=== PATIENT | female | born 1970 | race Two or more races ===

== ENCOUNTER 2021-05-11 13:46 | Outpatient (REF) | payer OTHER, SELFPAY ==
[2021-05-11 21:38] LABS: Influenza A PCR NEGATIVE (Negative); Influenza B PCR NEGATIVE (Negative); Resp Syncy Virus RNA Qual PCR NEGATIVE (Negative); SARS COV2 PCR INHOUSE NEGATIVE (Negative)
== END 2021-05-11 13:47 | disposition home or self-care (01) ==
LOC: HO.LAB 13:46
PROVIDERS: Visit Provider Hospitalist
DX: Z20.822 Contact with and (suspected) exposure to COVID-19 (principal); R09.89 Other specified symptoms and signs involving the circulatory and respiratory systems
CPT/HCPCS: 0241U

== ENCOUNTER 2023-11-15 10:24 | Outpatient (AMB) | payer OTHER, SELFPAY ==
--- NOTE | 2023-11-15 10:28 | MHC.PC.OV ---
Vital Signs 11/15/23 10:34 Height 5 ft 2 in Weight 206 lb BMI 37.7 BP 122/60 Blood Pressure Location Lt brachial Position Sitting Respiration 13 Pulse 86 Pulse Source Pulse Oximeter Pulse Oximetry (%) 98 Oxygen Delivery Method Room Air Intake Visit Reasons: OC/SV/Establish Care Intake Note: Patient reports feeling tired for the last 2 months, with bloating. Baker Bench Required: No Accompanied by: Self / Same As Patient Allergies mold Allergy (Unknown, Verified 11/15/23 10:39) unknown Medication List - Last Reconciled 11/17/23 by Norma Raphael MD amlodipine 5 mg PO DAILY aspirin (Adult Low Dose Aspirin) 81 mg PO DAILY Bacillus coagulans-inulin 1 billion-250 cell-mg (Probiotic Formula (inulin)) caps PO diclofenac sodium 1% (Aleve (diclofenac)) 2 grams topical QID ergocalciferol (vitamin D2) 50 mcg PO DAILY ferrous fumarate 325 mg PO DAILY fluticasone propionate 50 mcg/actuation (Flonase Allergy Relief) 1 spray intranasal DAILY hydrochlorothiazide 12.5 mg PO DAILY magnesium aspartate HCl 1,230 mg PO BID mecobalamin (vitamin B12) 1,000 mcg PO DAILY omeprazole 20 mg PO DAILY Tobacco use date assessed: 11/15/23 Dental Screening Dental Screen Date: 11/15/23 Did you have a dental visit in the last 12 months?: Yes Did you have a dental problem in the last 6 months where you did not have access to dental care?: No Was dental information given to patient?: Patient has dentist HPI HPI Comments History of Present Illness Details The patient is a 53 year old female with a past medical history of hypertension, anemia, low back pain, arthritis, bells palsy presenting for follow up CV-Hypertension. On amlodipine and hctz. No chest pain, dizziness, vision changes MSK: Arthritis. Bilateral hands. Uses diclofenac gel Anemia: Has been on B12, iron supplements in the past. History of platelets donation. Has HLA antigens In November 2021 had [place] Palsy. She has had this in the past. Started with facial numbness and asymmetry. She had MRI thereafter which showed small vessel changes and sequelae of bells palsy Mammogram 06/2023 Pap 12/19/2021 Colonoscopy UTD ROS CONSTITUTIONAL: Denies weight loss, fever and chills. HEENT: Denies changes in vision and hearing. RESPIRATORY: Denies SOB and cough. CV: Denies palpitations and CP GI: Denies abdominal pain, nausea, vomiting and diarrhea. : Denies dysuria and urinary frequency. MSK: Denies new myalgia and joint pain. SKIN: Denies rash and pruritus. NEUROLOGICAL: Denies headache PSYCHIATRIC: Denies recent changes in mood. PHYSICAL EXAM: GENERAL: Alert and oriented x 3. NAD EYES: EOMI. Anicteric. HENT: Moist mucous membranes. No scleral icterus. No cervical lymphadenopathy. LUNGS: Clear to auscultation bilaterally. CARDIOVASCULAR: Regular rate and rhythm. No murmur. No JVD. ABDOMEN: Soft, non-tender +bs EXTREMITIES: No edema. Non-tender. SKIN: No rashes or lesions. Warm. NEUROLOGIC: No focal neurological deficits. CN II-XII grossly intact PSYCHIATRIC: Cooperative. Appropriate mood and affect [facility] Medical History (Updated 11/17/23 @ 09:32 by Norma Raphael MD) Severe obesity (BMI 35.0-39.9) with comorbidity Spinal stenosis of lumbar region Pre-diabetes Lumbar spondylosis Left knee pain Hypertension Osei's palsy Anemia Allergic rhinitis Surgical History (Updated 11/15/23 @ 12:45 by Jackelin Kirk CMA) History of lumpectomy History of colonoscopy Social History (Updated 11/15/23 @ 10:41 by Jackelin Kirk CMA) Household Members: None Housing: House Alcohol intake: current Alcohol intake frequency: a few times a month Patient Tobacco Use Status: Never used Tobacco e-Cigarette/Vaping Use: Never Used Substance Use Type: Marijuana service: No Current occupational status: employed Current occupation: [employer] Current occupational exposures/hazards: No Cognitive needs: No Hearing needs: No Vision needs: No Questionnaire PHQ-9 Over the last 2 weeks, how often have you been bothered by any of the following problems? 1. Little interest or pleasure in doing things: not at all 2. Feeling down, depressed, or hopeless: not at all 3. Trouble falling or staying asleep, or sleeping too much: not at all 4. Feeling tired or having little energy: not at all 5. Poor appetite or overeating: not at all 6. Feeling bad about yourself - or that you are a failure or have let yourself or your family down: not at all 7. Trouble concentrating on things, such as reading the newspaper or watching television: not at all 8. Moving or speaking so slowly that other people could have noticed. Or the opposite - being so fidgety or restless that you have been moving around a lot more than usual: not at all 9. Thoughts that you would be better off or of hurting yourself in some way: not at all Total score: 0 Depression Screening Interpretation: Negative Depression Screening Done: Yes 94581 - PHQ-9 Billing: Yes Source: Developed by Drs. Thai Davidson, Sarah Trujillo, Vikram Edmond and colleagues, with an educational mariano from [employer]. Thrive Questionnaire Date Thrive assessed: 11/15/23 I am a: Patient What is your living situation today?: I have a steady place to live Within the past 12 months, did the food you bought not last and you didn't have the money to get more?: Never true Within the past 12 months, did you worry whether your food would run out before you got money to buy more?: Never true Do you have trouble paying for medicines?: No Do you have trouble getting transportation to medical appointments?: No Do you have trouble paying your heating and electricity bill?: No Do you have trouble taking care of your child, family member or friend?: No Do you have trouble with day-to-day activities such as bathing, preparing meals, shopping, managing finances, etc.?: No Are you currently unemployed and looking for a job?: No Are you interested in more education?: No Please select the resources that you would like help with: None Currently or been in a relationship where the following occur: No concerns reported THRIVE Score: 0 AUDIT C Alcohol Use Questionnaire (AUDIT-C) 1. How often do you have a drink containing alcohol?: Monthly or less 2. How many drinks containing alcohol do you have on a typical day when you are drinking?: 1 or 2 3. How often do you have six or more drinks on one occasion?: Never Total Score: 1 LIZ-7 AMB Questionnaire LIZ-7 Date LIZ - 7 assessed: 11/15/23 Feeling nervous, anxious, or on edge: 0 = Not at all Not being able to stop or control worryin = Not at all Worrying too much about different things: 0 = Not at all Trouble relaxin = Not at all Being so restless that it is hard to sit still: 0 = Not at all Becoming easily annoyed or irritable: 0 = Not at all Feeling afraid as if something awful might happen: 0 = Not at all Total LIZ-7 score (0-4 normal; 5-9 mild; 10-14 moderate; 15-21 severe): 0 Source: Developed by Drs. Thai Davidson, Sarah Trujillo, Vikram Edmond and colleagues, with an educational mariano from [employer]. LIZ-7 Assessment Billing LIZ-7 Assessment Tool: LIZ-7 Assessment 88625 Physical exam (Primary Care) Vital Signs: Last Vital Signs Pulse 86 11/15/23 10:34 Resp 13 11/15/23 10:34 BP 122/60 11/15/23 10:34 Pulse Ox 98 11/15/23 10:34 Oxygen Delivery Method Room Air 11/15/23 10:34 BMI result Body Mass Index 37.7 Tobacco/Smoking Status: Tobacco use Status Tobacco use date assessed 11/15/23 11/15/23 10:41 Patient Tobacco Use Status Never used Tobacco 11/15/23 10:41 e-Cigarette/Vaping Use Never Used 11/15/23 10:41 PHQ-9: PHQ-9 Score PHQ-9: Total score 0 11/15/23 10:53 Depression Screening Interpretation: Negative Thrive Assessment: Date of Thrive Assessment Date Thrive assessed 11/15/23 11/15/23 10:51 Currently or been in a relationship where the following occur: No concerns reported Assessment and Plan Assessment & Plan (1) Hypertension: Code(s): I10 - Essential (primary) hypertension Qualifiers: Hypertension type: primary hypertension Qualified Code(s): I10 - Essential (primary) hypertension Plan: controlled on current medication (2) Pre-diabetes: Code(s): R73.03 - Prediabetes (3) Fatigue: Code(s): R53.83 - Other fatigue Qualifiers: Fatigue type: unspecified Qualified Code(s): R53.83 - Other fatigue (4) Dyspepsia: Code(s): R10.13 - Epigastric pain Plan: dyspepsia. Trial PPI for one month. consider GI referral if no improvement Orders: Orders IRON PROFILE 11/15/23 D64.9 - Anemia, unspecified, I10 - Essential (primary) hypertension, R10.13 - Epigastric pain, R53.83 - Other fatigue, R73.03 - Prediabetes Vitamin B12 11/15/23 D64.9 - Anemia, unspecified, I10 - Essential (primary) hypertension, R10.13 - Epigastric pain, R53.83 - Other fatigue, R73.03 - Prediabetes Comprehensive Met. Panel 11/15/23 D64.9 - Anemia, unspecified, I10 - Essential (primary) hypertension, R10.13 - Epigastric pain, R53.83 - Other fatigue, R73.03 - Prediabetes Complete Blood Count Auto Diff 11/15/23 D64.9 - Anemia, unspecified, I10 - Essential (primary) hypertension, R10.13 - Epigastric pain, R53.83 - Other fatigue, R73.03 - Prediabetes Lyme IgG/IgM w/reflex to WB 11/15/23 D64.9 - Anemia, unspecified, I10 - Essential (primary) hypertension, R10.13 - Epigastric pain, R53.83 - Other fatigue, R73.03 - Prediabetes Monotest 11/15/23 D64.9 - Anemia, unspecified, I10 - Essential (primary) hypertension, R10.13 - Epigastric pain, R53.83 - Other fatigue, R73.03 - Prediabetes Hemoglobin A1c 11/15/23 D64.9 - Anemia, unspecified, I10 - Essential (primary) hypertension, R10.13 - Epigastric pain, R53.83 - Other fatigue, R73.03 - Prediabetes TSH reflex Free T4 11/15/23 D64.9 - Anemia, unspecified, I10 - Essential (primary) hypertension, R10.13 - Epigastric pain, R53.83 - Other fatigue, R73.03 - Prediabetes Medications: New diclofenac sodium 1% (Aleve (diclofenac)) apply to single elbow, wrist or hand; for hand includes palm/fingers/back of hand 2 grams topical QID 100 grams 0RF omeprazole 20 mg PO DAILY 30 caps 0RF aspirin (Adult Low Dose Aspirin) 81 mg PO DAILY 30 tabs 0RF ferrous fumarate 325 mg PO DAILY 30 tabs 0RF Coding Level of Care Code Est Pt Level 5 (06035) Complex EM visit Add On G2211 Diagnoses Primary hypertension I10 Hypertension type: primary hypertension Pre-diabetes R73.03 Fatigue, unspecified type R53.83 Fatigue type: unspecified Dyspepsia R10.13 Additional Codes LIZ-7 Assessment Billing - LIZ-7 Assessment Tool: LIZ-7 Assessment 95288 ([id number])
[2023-11-15 10:34] VITALS: BP 122/60; PULSE 86; RESP 13; O2SAT 98; BMI 37.7
== END 2023-11-15 13:11 | disposition home or self-care (01) ==
PROVIDERS: PCP Internal Medicine; Visit Provider Internal Medicine
DX: I10 Essential (primary) hypertension (principal); R73.03 Prediabetes; R53.83 Other fatigue; R10.13 Epigastric pain
CPT/HCPCS: 99214

== ENCOUNTER 2023-11-15 11:20 | Outpatient (REF) | payer OTHER, SELFPAY ==
[2023-11-15 14:04] LABS: MANUAL DIFF FLAG NO
[2023-11-15 14:22] LABS: Basophils Absolute Auto 0.1 X10*3/uL (0.0-0.2); Basophils Percent Auto 1.1 % (0-2); Eosinophils Absolute Auto 0.2 X10*3/uL (0.0-0.4); Eosinophils Percent Auto 2.1 % (0-4); Hematocrit 43.5 % (37.0-47.0); Hemoglobin 14.1 g/dl (12.0-16.0); Imm Gran Abs Auto 0.02 X10*3/uL (0.00-0.03); Imm Gran Pct Auto 0.2 % (0.0-0.4); Lymphocytes Absolute Auto 2.8 X10*3/uL (1.2-4.9); Lymphocytes Percent Auto 34.2 % (20-40); Mean Corpuscular HGB Conc 32.4 g/dl (31.0-35.0); Mean Corpuscular Hemoglobin 27.3 pg (27.0-33.0); Mean Corpuscular Volume 84.1 fL (80.0-98.0); Mean Platelet Volume 9.6 fL (9.4-12.3); Monocytes Absolute Auto 0.9 X10*3/uL (0.1-1.2); Monocytes Percent Auto 10.4 % (2-11); Neutrophils Absolute Auto 4.3 x10*3/uL (2.0-8.3); Platelet Count 377 X10*3/uL (160-400); Red Blood Count 5.17 X10*6/uL (4.20-5.50); Red Cell Distribution Width 14.6 % (11.0-16.0); White Blood Count 8.2 X10*3/uL (4.8-10.8)
[2023-11-15 14:26] LABS: Estimated Average Glucose 111 mg/dL; Hemoglobin A1c % 5.5 % (<6.0)
[2023-11-15 14:35] LABS: Alanine Aminotransferase 15 U/L (0-31); Albumin Level 4.3 g/dL (3.5-5.0); Alkaline Phosphatase 98 U/L (39-117); Anion Gap 12 (12-20); Aspartate Amino Transferase 20 U/L (5-31); Bilirubin Total 0.3 mg/dL (0.0-1.0); Blood Urea Nitrogen 22 mg/dL (9-16); Calcium 9.8 mg/dL (8.4-10.2); Carbon Dioxide 29 mmol/L (22-29); Chloride 102 mmol/L (96-108); Estimated Glomerular Filt Rate > 60; Glucose Random 82 mg/dL (60-115); Iron 114 mcg/dL (30-160); Percent Iron Saturation 38 % (15-50); Potassium 4.1 mmol/L (3.3-5.1); Sodium 139 mmol/L (135-145); Total Iron Binding Capacity 302 mcg/dL (228-428); Total Protein 7.8 g/dL (6.5-8.0); Unsaturated Iron Binding 188 ug/dL
[2023-11-15 14:49] LABS: TSH reflex Free T4 1.45 uIU/mL (0.32-4.0)
[2023-11-15 14:55] LABS: Vitamin B12 890 pg/mL (200-900)
[2023-11-15 16:00] LABS: Monotest Negative (Negative)
[2023-11-18 21:38] LABS: Lyme Abs Screen <0.90 index
== END 2023-11-15 11:21 | disposition home or self-care (01) ==
LOC: HO.WFDLDS 11:20
PROVIDERS: Visit Provider Internal Medicine
DX: R53.83 Other fatigue (principal); D64.9 Anemia, unspecified; I10 Essential (primary) hypertension; R73.03 Prediabetes; R10.13 Epigastric pain
CPT/HCPCS: 36415; 80053; 82607; 83036; 83540; 84443; 85025; 86308; 86617; 86618

== ENCOUNTER 2024-01-24 10:22 | Outpatient (AMB) | payer OTHER, SELFPAY ==
--- NOTE | 2024-01-24 10:24 | A.OFFPC_ITS ---
Vital Signs 01/24/24 10:25 Height 5 ft 2 in Weight 211 lb BMI 38.6 BP 158/80 H Blood Pressure Location Lt brachial Position Sitting Respiration 12 Pulse 77 Pulse Source Pulse Oximeter Pulse Oximetry (%) 97 Oxygen Delivery Method Room Air Intake Visit Reasons: Achilles pain for a couple of months. Intake Note: Patient would like to discuss her rear L foot/ankle pain x2-3 months and worsening. Patient describes the pain feels like it is pulling when walking. Patient brought in medical records in from a different office. Patient would like to discuss ankle pain on the top of the R foot/ankle, to which she believes may be arthritis because pain worsens when she feels cold. Patient would also like to discuss lumbar spondylosis. Patient reports she has been trying to exercise recently and she would like to get the painful area checked due to history of back pain. Transactional Attorney Required: No Accompanied by: Self / Same As Patient Allergies mold Allergy (Unknown, Verified 01/24/24 10:25) unknown Tobacco use date assessed: 11/15/23 Dental Screening Dental Screen Date: 11/15/23 HPI HPI Comments History of Present Illness Details The patient is a 53 year old female with a past medical history of hypertension, anemia, low back pain, arthritis, bells palsy presenting for bilateral foot pain Patient has had issues with bilateral foot pain but recently has increased left achilles pain and increased left dorsal mid foot pain. Has had xrays a few years ago. There was arthritis noted and a spur in the insertion of the achilles CV-Hypertension. On amlodipine and hctz. No chest pain, dizziness, vision changes MSK: Arthritis. Bilateral hands. Uses diclofenac gel Anemia: Has been on B12, iron supplements in the past. History of platelets donation. Has HLA antigens In November 2021 had [place] Palsy. She has had this in the past. Started with facial numbness and asymmetry. She had MRI thereafter which showed small vessel changes and sequelae of bells palsy Mammogram 06/2023 Pap 12/19/2021 Colonoscopy UTD ROS see HPI PHYSICAL EXAM: GENERAL: Alert and oriented x 3. NAD EYES: EOMI. Anicteric. HENT: Moist mucous membranes. No scleral icterus. No cervical lymphadenopathy. LUNGS: Clear to auscultation bilaterally. CARDIOVASCULAR: Regular rate and rhythm. No murmur. No JVD. ABDOMEN: Soft, non-tender +bs EXTREMITIES: No edema. Non-tender. SKIN: No rashes or lesions. Warm. NEUROLOGIC: No focal neurological deficits. CN II-XII grossly intact PSYCHIATRIC: Cooperative. Appropriate mood and affect [facility] Medical History (Updated 01/25/24 @ 09:35 by Norma Raphael MD) Severe obesity (BMI 35.0-39.9) with comorbidity Spinal stenosis of lumbar region Pre-diabetes Lumbar spondylosis Left knee pain Hypertension Osei's palsy Anemia Allergic rhinitis Surgical History (Updated 11/15/23 @ 12:45 by Jackelin Kirk CMA) History of lumpectomy History of colonoscopy Social History (Updated 11/15/23 @ 10:41 by Jackelin Kirk CMA) Household Members: None Housing: House 75 years or older and lives alone: No Alcohol intake: current Alcohol intake frequency: a few times a month Patient Tobacco Use Status: Never used Tobacco e-Cigarette/Vaping Use: Never Used Substance Use Type: Marijuana service: No Current occupational status: employed Current occupation: [employer] Current occupational exposures/hazards: No Cognitive needs: No Hearing needs: No Vision needs: No Questionnaire PHQ-9 Over the last 2 weeks, how often have you been bothered by any of the following problems? 1. Little interest or pleasure in doing things: not at all 2. Feeling down, depressed, or hopeless: not at all 3. Trouble falling or staying asleep, or sleeping too much: several days 4. Feeling tired or having little energy: not at all 5. Poor appetite or overeating: not at all 6. Feeling bad about yourself - or that you are a failure or have let yourself or your family down: not at all 7. Trouble concentrating on things, such as reading the newspaper or watching television: not at all 8. Moving or speaking so slowly that other people could have noticed. Or the opposite - being so fidgety or restless that you have been moving around a lot more than usual: not at all 9. Thoughts that you would be better off or of hurting yourself in some way: not at all Total score: 1 Source: Developed by Drs. Thai Davidson, Sarah Trujillo, Vikram Edmond and colleagues, with an educational mariano from [employer]. Thrive Questionnaire Date Thrive assessed: 01/17/24 I am a: Patient What is your living situation today?: I have a steady place to live Within the past 12 months, did the food you bought not last and you didn't have the money to get more?: Never true Within the past 12 months, did you worry whether your food would run out before you got money to buy more?: Never true Do you have trouble paying for medicines?: No Do you have trouble getting transportation to medical appointments?: No Do you have trouble paying your heating and electricity bill?: No Do you have trouble taking care of your child, family member or friend?: No Do you have trouble with day-to-day activities such as bathing, preparing meals, shopping, managing finances, etc.?: No Are you currently unemployed and looking for a job?: No Are you interested in more education?: No Please select the resources that you would like help with: None Currently or been in a relationship where the following occur: No concerns reported THRIVE Score: 0 AUDIT C Alcohol Use Questionnaire (AUDIT-C) 1. How often do you have a drink containing alcohol?: 2-3 times a week 2. How many drinks containing alcohol do you have on a typical day when you are drinking?: 1 or 2 3. How often do you have six or more drinks on one occasion?: Less than monthly Total Score: 4 LIZ-7 AMB Questionnaire LIZ-7 Date LIZ - 7 assessed: 11/15/23 Feeling nervous, anxious, or on edge: 0 = Not at all Not being able to stop or control worryin = Not at all Worrying too much about different things: 0 = Not at all Trouble relaxin = Not at all Being so restless that it is hard to sit still: 1 = Several days Becoming easily annoyed or irritable: 0 = Not at all Feeling afraid as if something awful might happen: 0 = Not at all Total LIZ-7 score (0-4 normal; 5-9 mild; 10-14 moderate; 15-21 severe): 1 Source: Developed by Drs. Thai Davidson, Sarah Trujillo, Vikram Edmond and colleagues, with an educational mariano from [employer]. Physical exam (Primary Care) Vital Signs: Last Vital Signs Pulse 77 01/24/24 10:25 Resp 12 01/24/24 10:25 BP 158/80 H 01/24/24 10:25 Pulse Ox 97 01/24/24 10:25 Oxygen Delivery Method Room Air 01/24/24 10:25 BMI result Body Mass Index 38.6 Tobacco/Smoking Status: Tobacco use Status Tobacco use date assessed 11/15/23 01/24/24 10:34 Patient Tobacco Use Status Never used Tobacco 01/24/24 10:34 e-Cigarette/Vaping Use Never Used 01/24/24 10:34 PHQ-9: PHQ-9 Score PHQ-9: Total score 1 01/25/24 09:36 Thrive Assessment: Date of Thrive Assessment Date Thrive assessed 01/17/24 01/24/24 10:34 Currently or been in a relationship where the following occur: No concerns reported Assessment and Plan Assessment & Plan (1) Left Achilles tendinitis: Code(s): M76.62 - Achilles tendinitis, left leg Plan: referral to podiatry Diclofenac refilled EMLA ordered. (2) Bilateral foot pain: Code(s): M79.671 - Pain in right foot; M79.672 - Pain in left foot Orders: Referrals Podiatry Referral M76.62 - Achilles tendinitis, left leg Medications: New prednisone 40 mg (2 x 20 mg) PO DAILY 10 tabs 0RF 5 days lidocaine-prilocaine 2.5-2.5 % 1 appl topical DAILY 50 grams 0RF Refilled diclofenac sodium 1% (Aleve (diclofenac)) apply to single elbow, wrist or hand; for hand includes palm/fingers/back of hand 2 grams topical QID 100 grams 0RF Coding Level of Care Code Est Pt Level 4 (16193) Diagnoses Left Achilles tendinitis M76.62 Bilateral foot pain M79.671; M79.672
[2024-01-24 10:25] VITALS: BP 158/80; PULSE 77; RESP 12; O2SAT 97; BMI 38.6
== END 2024-01-24 11:15 | disposition home or self-care (01) ==
PROVIDERS: PCP Internal Medicine; Visit Provider Internal Medicine
DX: M76.62 Achilles tendinitis, left leg (principal); M79.671 Pain in right foot; M79.672 Pain in left foot
CPT/HCPCS: 99214

== ENCOUNTER 2024-10-27 15:16 | Outpatient (REF) | payer OTHER, SELFPAY ==
[2024-10-27 18:06] LABS: Alanine Aminotransferase 21 U/L (0-31); Albumin Level 4.4 g/dL (3.5-5.0); Alkaline Phosphatase 93 U/L (39-117); Anion Gap 12 (12-20); Aspartate Amino Transferase 21 U/L (5-31); Bilirubin Total 0.2 mg/dL (0.0-1.0); Blood Urea Nitrogen 23 mg/dL (9-16); Calcium 9.7 mg/dL (8.4-10.2); Carbon Dioxide 30 mmol/L (22-29); Chloride 102 mmol/L (96-108); Estimated Glomerular Filt Rate 54; Glucose Random 88 mg/dL (60-115); Potassium 4.2 mmol/L (3.3-5.1); Sodium 140 mmol/L (135-145); Total Protein 7.8 g/dL (6.5-8.0)
[2024-10-27 18:41] LABS: D Dimer High Sensitivity < 150 NG/ML
[2024-10-28 17:33] LABS: NT-proBNP <36 pg/mL (<125)
== END 2024-10-27 15:17 | disposition home or self-care (01) ==
LOC: HO.WFDLDS 15:16
PROVIDERS: PCP Internal Medicine; Visit Provider Internal Medicine
DX: M79.89 Other specified soft tissue disorders (principal); R00.2 Palpitations; I10 Essential (primary) hypertension; R73.03 Prediabetes
CPT/HCPCS: 36415; 80053; 83880; 85379; 96127

== ENCOUNTER 2024-10-27 15:16 | Outpatient (AMB) | payer OTHER, SELFPAY ==
--- NOTE | 2024-10-27 15:26 | MHC.PC.OV ---
Vital Signs 10/27/24 15:32 BP 128/76 Blood Pressure Location Rt brachial Position Sitting Respiration 16 Pulse 91 Pulse Source Pulse Oximeter Temp 97.9 F Temp Source Oral Pulse Oximetry (%) 98 Oxygen Delivery Method Room Air Intake Visit Reasons: swelling in calves Intake Note: Bilateral calf swelling, warm to the touch. Symptoms started 3 weeks ago. Sxs not constant. 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 Required: No Allergies mold Allergy (Unknown, Verified 10/27/24 15:28) unknown Tobacco use date assessed: 10/27/24 Dental Screening Dental Screen Date: 10/27/24 Did you have a dental visit in the last 12 months?: Yes Did you have a dental problem in the last 6 months where you did not have access to dental care?: No Was dental information given to patient?: Patient has dentist HPI HPI Comments History of Present Illness Details The patient is a 53 year old female with a past medical history of hypertension, anemia, low back pain, arthritis, bells palsy presenting for leg swelling Patient has been experiencing bilateral calf and leg swelling intermittently. Most notably on vacation swelling became marked in the right over left leg. She denies clarissa calf pain. She is on norvasc and hctz. she denies dietary indiscretion. Denies clarissa shortness of breath though sometimes is having transient palpitation. Strong family history of heart disease. Since vacation the swelling has subsided. CV-Hypertension. On amlodipine and hctz. Blood pressure is well controlled. No chest pain, dizziness, vision changes MSK: Arthritis. Bilateral hands. Uses diclofenac gel Anemia: Has been on B12, iron supplements in the past. History of platelets donation. Has HLA antigens In November 2021 had [place] Palsy. She has had this in the past. Started with facial numbness and asymmetry. She had MRI thereafter which showed small vessel changes and sequelae of bells palsy Mammogram 06/2023 Pap 12/19/2021 Colonoscopy UTD ROS see HPI PHYSICAL EXAM: GENERAL: Alert and oriented x 3. NAD EYES: EOMI. Anicteric. HENT: Moist mucous membranes. No scleral icterus. No cervical lymphadenopathy. LUNGS: Clear to auscultation bilaterally. CARDIOVASCULAR: Regular rate and rlhythm.slight systolic murmur. No JVD. ABDOMEN: Soft, non-tender +bs EXTREMITIES: moderate b/l non pitting edema. Non-tender. SKIN: No rashes or lesions. Warm. NEUROLOGIC: No focal neurological deficits. CN II-XII grossly intact PSYCHIATRIC: Cooperative. Appropriate mood and affect [facility] Medical History Severe obesity (BMI 35.0-39.9) with comorbidity Spinal stenosis of lumbar region Pre-diabetes Lumbar spondylosis Left knee pain Hypertension Osei's palsy Anemia Allergic rhinitis Surgical History History of lumpectomy History of colonoscopy Social History Household Members: None Housing: House 75 years or older and lives alone: No Alcohol intake: current Alcohol intake frequency: a few times a month Patient Tobacco Use Status: Never used Tobacco e-Cigarette/Vaping Use: Never Used Use of substances other than those prescribed or required for medical reasons: Yes Substance Use Type: Marijuana service: No Current occupational status: employed Current occupation: [employer] Current occupational exposures/hazards: No Cognitive needs: No Hearing needs: No Vision needs: No Questionnaire PHQ-9 Over the last 2 weeks, how often have you been bothered by any of the following problems? 1. Little interest or pleasure in doing things: not at all 2. Feeling down, depressed, or hopeless: not at all 3. Trouble falling or staying asleep, or sleeping too much: more than half the days 4. Feeling tired or having little energy: more than half the days 5. Poor appetite or overeating: several days 6. Feeling bad about yourself - or that you are a failure or have let yourself or your family down: not at all 7. Trouble concentrating on things, such as reading the newspaper or watching television: not at all 8. Moving or speaking so slowly that other people could have noticed. Or the opposite - being so fidgety or restless that you have been moving around a lot more than usual: not at all 9. Thoughts that you would be better off or of hurting yourself in some way: not at all Total score: 5 Depression Screening Interpretation: Positive Depression Screening Done: Yes 67726 - PHQ-9 Billing: Yes Source: Developed by Drs. Thai Davidson, Sarah Trujillo, Vikram Edmond and colleagues, with an educational mariano from [employer].. Thrive Questionnaire Date Thrive assessed: 10/27/24 I am a: Patient What is your living situation today?: I have a steady place to live Within the past 12 months, did the food you bought not last and you didn't have the money to get more?: Never true Within the past 12 months, did you worry whether your food would run out before you got money to buy more?: Never true Do you have trouble paying for medicines?: No Do you have trouble getting transportation to medical appointments?: No Do you have trouble paying your heating and electricity bill?: No Do you have trouble taking care of your child, family member or friend?: No Do you have trouble with day-to-day activities such as bathing, preparing meals, shopping, managing finances, etc.?: No Are you currently unemployed and looking for a job?: No Are you interested in more education?: No Please select the resources that you would like help with: None Currently or been in a relationship where the following occur: No concerns reported THRIVE Score: 0 AUDIT C Alcohol Use Questionnaire (AUDIT-C) 1. How often do you have a drink containing alcohol?: 2-4 times a month 2. How many drinks containing alcohol do you have on a typical day when you are drinking?: 1 or 2 3. How often do you have six or more drinks on one occasion?: Never Total Score: 2 LIZ-7 AMB Questionnaire LIZ-7 Date LIZ - 7 assessed: 10/27/24 Feeling nervous, anxious, or on edge: 0 = Not at all Not being able to stop or control worryin = Several days Worrying too much about different things: 2 = More than half the days Trouble relaxin = Several days Being so restless that it is hard to sit still: 0 = Not at all Becoming easily annoyed or irritable: 0 = Not at all Feeling afraid as if something awful might happen: 0 = Not at all Total LIZ-7 score (0-4 normal; 5-9 mild; 10-14 moderate; 15-21 severe): 4 Source: Developed by Sarah Story B.W. Ronnie, Vikram Edmond and colleagues, with an educational mariano from [employer].. LIZ-7 Assessment Billing LIZ-7 Assessment Tool: LIZ-7 Assessment 99666 Physical exam (Primary Care) Vital Signs: Last Vital Signs Temp 97.9 F 10/27/24 15:32 Pulse 91 10/27/24 15:32 Resp 16 10/27/24 15:32 BP 128/76 10/27/24 15:32 Pulse Ox 98 10/27/24 15:32 Oxygen Delivery Method Room Air 10/27/24 15:32 Tobacco/Smoking Status: Tobacco use Status Tobacco use date assessed 10/27/24 10/27/24 15:34 Patient Tobacco Use Status Never used Tobacco 10/27/24 15:43 e-Cigarette/Vaping Use Never Used 10/27/24 15:43 PHQ-9: PHQ-9 Score PHQ-9: Total score 5 10/27/24 15:56 Depression Screening Interpretation: Positive Thrive Assessment: Date of Thrive Assessment Date Thrive assessed 10/27/24 10/27/24 15:34 Currently or been in a relationship where the following occur: No concerns reported Coding Level of Care Code Est Pt Level 4 (36675) Diagnoses Swelling of lower extremity M79.89 Palpitations R00.2 Primary hypertension I10 Hypertension type: primary hypertension Additional Codes LIZ-7 Assessment Billing - LIZ-7 Assessment Tool: LIZ-7 Assessment 43495 ([id number]) PHQ-9 - 19518 - PHQ-9 Billing: Yes ([id number]) Assessment & Plan Assessment & Plan (1) Swelling of lower extremity: Code(s): M79.89 - Other specified soft tissue disorders Category: Medical (2) Palpitations: Code(s): R00.2 - Palpitations Category: Medical (3) Hypertension: Code(s): I10 - Essential (primary) hypertension Category: Medical Qualifiers: Hypertension type: primary hypertension Qualified Code(s): I10 - Essential (primary) hypertension Plan LE swelling-interval improvement Stop norvasc. stop hctz 12.5. Start chlorthalidone 25mg daily. Ddimer ordered. If positive obtain duplex bnp. echo ordered Orders: Orders NT-proBNP Today I10 - Essential (primary) hypertension, M79.89 - Other specified soft tissue disorders, R00.2 - Palpitations, R73.03 - Prediabetes D Dimer High Sensitivity Today I10 - Essential (primary) hypertension, M79.89 - Other specified soft tissue disorders, R00.2 - Palpitations, R73.03 - Prediabetes Comprehensive Met. Panel Today I10 - Essential (primary) hypertension, M79.89 - Other specified soft tissue disorders, R00.2 - Palpitations, R73.03 - Prediabetes CA echo transthoracic complete Today I10 - Essential (primary) hypertension, M79.89 - Other specified soft tissue disorders, R00.2 - Palpitations, R73.03 - Prediabetes Medications: New chlorthalidone 25 mg PO DAILY 90 tabs 3RF Discontinued amlodipine Discontinued Reason: Duplicate 5 mg PO DAILY 90 tabs 3RF hydrochlorothiazide Discontinued Reason: Doctor's Order 12.5 mg PO DAILY 90 caps 3RF
[2024-10-27 15:32] VITALS: BP 128/76; PULSE 91; RESP 16; TEMP 36.6; O2SAT 98
== END 2024-10-27 15:48 | disposition home or self-care (01) ==
LOC: HO.HMCFM 15:16
PROVIDERS: PCP Internal Medicine; Visit Provider Internal Medicine
DX: M79.89 Other specified soft tissue disorders (principal); R00.2 Palpitations; I10 Essential (primary) hypertension

== ENCOUNTER → 2024-12-04 13:38 | Outpatient (REF) | payer OTHER, SELFPAY ==
--- NOTE | 2024-12-04 13:41 | CA_ITS ---
Transthoracic Echocardiogram Patient (Last, First, Middle): Yarelis Vargas, Gender: Female Date of : 1970 Age: 54 Procedure Date: 12/04/2024 Procedure Type: Transthoracic Echocardiogram Location: OP Height: 157.48 cm Weight: 94.8 kg BSA: 1.95 m2 Heart Rate: bpm BP: 124 / 80 mmHg Clarity Specialists: Referring MD: Norma Raphael MD Symptoms: I10 - Essential (primary) hypertension Study Quality: Good ECG Rhythm: Sinus Conclusions: - Normal left ventricular size and systolic function. There is mildly increased left ventricular wall thickness. The visually estimated ejection fraction is between 60-65%. There is no evidence of regional wall motion abnormalities. Diastolic function is normal for age. - Normal right ventricular cavity size and systolic function. - The left atrium is mildly dilated. - There is no aortic valve stenosis. There is trace (trivial) aortic valve regurgitation. Cannot rule out bicuspid aortic valve. - There is mild dilatation of the sinuses of Valsalva measuring 3.80 cm. Findings Left Ventricle Normal left ventricular size and systolic function. There is mildly increased left ventricular wall thickness. The visually estimated ejection fraction is between 60-65%. There is no evidence of regional wall motion abnormalities. Diastolic function is normal for age. Right Ventricle Normal right ventricular cavity size and systolic function. Atria The left atrium is mildly dilated. The right atrium is normal in size. Aortic Valve There is no aortic valve stenosis. There is trace (trivial) aortic valve regurgitation. Cannot rule out bicuspid aortic valve. Mitral Valve The mitral valve appears normal. There is no mitral valve regurgitation. There is no mitral valve stenosis. Pulmonic Valve The pulmonic valve is normal. There is no pulmonic valve regurgitation. Tricuspid Valve Normal tricuspid valve structure. There is trace tricuspid valve regurgitation. Normal right atrial pressure. There is no evidence of pulmonary hypertension. Great Vessels There is mild dilatation of the sinuses of Valsalva measuring 3.80 cm. The visualized portions of the pulmonary artery and branches are normal. Venous The inferior vena cava is normal in size and collapses greater than 50% with inspiration. Pericardium/Pleural There is no evidence of pericardial effusion. Prior Study Comparison No prior study available for comparison. Measurements 2D Linear Measurements IVSd: 0.97 0.6-0.9/0.6-1.0 cm LVIDd: 4.38 3.9-5.3/4.2-5.9 cm LVIDd Index: 2.25 2.4-3.2/2.2-3.1 cm/m2 LVIDs: 2.46 2.0-3.6 cm LVPWd: 1.09 0.7-1.1 cm Ao Root: 3.80 2.1-3.5 cm LA Diam: 3.80 2.7-3.8/3.0-4.0 cm LAIDs Index: 1.95 1.5-2.3 cm/m2 LV Mass: 190.77 67-162/88-224 g LV Mass Index: 97.83 43-95/49-115 g/m2 LVOT Diam: 2.00 3.0+(-)1.3 cm 2D Systolic Function EF 4C: 64.60 >55% EF 2C: 54.10 >55% EF BiP: 61.90 >55% Mitral Valve MV Pk E: 0.54 MV PK A: 0.94 MV Decel Time: 168.00 E/A: 0.60 E'Lateral: 9.14 E'Medial: 5.98 E/E' Med: 9.00 E/E' Lat: 5.90 PHT: 49.00 MVA PHT: 4.49 Decel [place]: 3.19 Aortic Valve AoV Pk Baltazar: 1.36 AoV Mn [place]: 0.80 AoV VTI: 0.32 AoV Pk Grad: 7.00 Aov Mn Grad: 3.00 PHIL Cont.VTI: 2.37 LVOT LVOT Pk [place]: 1.01 LVOT Mn [place]: 0.67 LVOT VTI: 0.24 LVOT Pk Grad: 4.00 LVOT Mn Grad: 2.00 LVOT Diam: 2.00 LVOT Area: 3.14 Diastolic Function MV Pk E: 0.54 MV Pk A: 0.94 E/A: 0.60 E'Medial: 5.98 E/E' Med: 9.00 E' Laterial: 9.14 E/E' Lat: 5.90 Right Ventricle TAPSE (mm): 20.00 Tricuspid Valve TR Pk Baltazar: 2.27 TR Pk Grad: 21.00 RA Press: 3.00 RVSP: 24.00 Great Vessels Aorta Ao Root-2D: 3.80 2.0-3.7 cm Sinus of Valsalva: 3.80 2.0-3.5 cm Ao Asc: 3.10 2.1-3.4 cm Pulmonary Valve PV Pk Baltazar: 0.93 Peak PV Grad: 3.00 Updated in Other Vendor System with Status of Final Praveen Erickson MD electronically signed on 12/06/2024 2:08:59 PM with status of Final
--- OUTSIDE RECORDS SUMMARY | 2024-12-04 13:41 | XMS_ITS | Clinical Summary ---
Author Organization [facility] Address [address] [place] [id number] Care Team Providers Care High [employer] Hvac R Instructor Name Role Phone Norma Raphael MD Primary Care Provider [phone] Allergies No known active allergies Medications Medication Sig Dispensed Refills Start Date End Date Status CYANOCOBALAMIN PO Take by mouth. 0 Act no MAGNESIUM PO Take by mouth. 0 Active Probiotic Product (PROBIOTIC DAILY PO) Take by mouth. 0 Active amLODIPine (NORVASC) tablet 5 mg Take 5 mg by mouth. 0 04/16/2019 Active Cholecalciferol (VITAMIN D) 50 MCG (2000 UT) CAPS Take 1 capsule by mouth. 0 Active Diclofenac Sodium 1 % GEL topical Place 1 g onto the skin. 0 06/13/2018 Active Ferrous Sulfate (IRON) 325 (65 Fe) MG TABS Take by mouth. 0 A ctive fluticasone (FLONASE) 50 MCG/ACT nasal spray Use 2 spray per nostril daily. 0 10/03/2018 Active hydroCHLOROthiazide (HYDRODIURIL) tablet 12.5 mg Take 12.5 mg by mouth. 0 04/16/2019 Active Family History Medical History Relation Name Comments Cancer Father Diabetes Father Heart disease Father Hyperlipidemia Father Arthritis Mother Heart disease Mother Hypertension Mother Cancer Sister Relation Name Status Comments Father Mother Sister Social History Tobacco Use Types Packs/Day Years Used Date Smoking Tobacco: Never Smokeless Tobacco: Never Alcohol Use Standard Drinks/Week Comments Yes 2 (1 standard drink = 0.6 oz pur e alcohol) Sex and Gender Information Value Date Recorded Sex Assigned at Not on file Gender Identity Not on file Sexual Orientation Not on file Last Filed Vital Signs Vital Sign Reading Time Taken Comments Blood Pressure - - Pulse - - Temperature - - Respiratory Rate - - Oxygen Saturation - - Inhaled Oxygen Concentration - - Weight 99.3 kg (219 lb) 05/21/2019 3:43 PM EST Height 157.5 cm (5' 2 ) 05/21/2019 3:43 PM EST Body Mass Index 40.06 05/21/2019 3:43 PM EST Plan of Treatment Health Maintenance Due Date Last Done Comments Hepatitis B Vaccines (1 of 3 - 3-dose series) 1970 Hepatitis C Screening 1970 COVID-19 Vaccine (#1) 1970 Depression Screening 1980 BMI Counseling 1986 Preventative Health Evaluation 1986 Cervical Cancer Screening (P ap Smear) 1989 Colon Cancer Screening (Colonoscopy) 2013 Breast Cancer Screening (Mammogram) 2018 Shingrix-Zoster Vaccine (1 of 2) 2018 DTap / Tdap / Td (2 - Td or Tdap) 04/23/2022 012 Influenza Vaccine (#1) 2025 Pneumococcal Vaccine Aged Out No long er eligible based on patient's age to complete this topic RSV Ped < 20 months Aged Out No longe r eligible based on patient's age to complete this topic Care Teams High School Hvac R Instructor Relationship Specialty Start Date End Date Norma Raphael MD PCP - General Internal Medicine 04/27/19
--- OUTSIDE RECORDS SUMMARY | 2024-12-04 13:41 | XMS_ITS | Patient Health Record ---
Author Organization [facility] Address [address] [address] Care Team Providers Care Truss Maker Name Role Phone SpencerFrancesca Norma Primary Care Provider LULU Phillips Unavailable [phone] Allergies Allergen (clinical drug ingredient) Drug/Non Drug Allergy documented on EMR Reaction Allergy Type Onset Date Status Adhesive Unknown Allergy Active Mold Unknown Allergy Active Reason For Referral No Information Medications Medication SIG (Take, Route, Frequency, Duration) Notes Start Date End Date Status Magnesium Active Aspirin 81 MG 1 tablet Orally Once a day Active hydroCHLOROthiazide 12.5 MG 1 capsule in the morning Orally Once a day Active amLODIPine Besylate 5 MG 1 tablet Orally Once a day Active Diclofenac Sodium 1 % as directed Externally Not-Taking Lidocaine-Prilocaine 2.5-2.5 % as directed Externally Not-Taking predniSONE 20 MG 1 tablet Orally Once a day Not-Taking Meloxicam 15 MG 1 tablet with food Orally Once a day for 30 days 03/24/2024 Active Iron 325 (65 Fe) MG 1 tablet Orally Active Vitamin D 25 MCG (1000 UT) 1 tablet Oral ly Once a day Active B Complex - as directed Orally Active Problems Problem Type SNOMED Code ICD Code Onset Dates Problem Status W/U Status Risk Notes Problem [id number] Gastrocnemius equinus of left lower extremity (M62.462) Active confirmed Vital Signs Heart Rate 71 /min 03/24/2024 Temperature 97.5 degrees Fahrenheit 03/24/2024 Respiratory Rate 16 /min 03/24/2024 Height 5ft 2in in 03/24/2024 Weight 207.8 lbs 03/24/2024 BMI 38 kg/m2 03/24/2024 Encounters Encounter Location Date Provider Diagnosis [facility] [address] [address] 03/24/2024 LULU NOVAKALLEY Achilles tendinitis of left lower extremity M76.62 ; Tendinitis with enthesopathy M77.9 ; Gastrocnemius equinus of left lower extremity M62.462 and Acute right ankle pain M25.571 [facility] [address] [facility] [address] [place] [address] 02/10/2024 LULU DIAZ Assessments Encounter Date Diagnosis (ICD Code) Assessment Notes Treatment Notes Treatment Clinical Notes Section Notes 03/24/2024 Achilles tendinitis of left lower extremity (ICD-10 - M76.62) Patient examined and evaluated today. Past medical history was reviewed. Radiographs were taken in the office and reviewed in the exam room with the patient with the help of a skeletal foot model. Patient was educated on the etiology of insertional Achilles tendonitis and tendinosis. Discussed conservative treatment options which included RICE therapy, oral anti-inflammatories , eccentric calf stretching, physical therapy, shoe modifications, heel lifts, bracing, and immobilization in a tall CAM boot and/or cast for 6 weeks. I stressed the importance of adding RICE therapy with eccentric calf stretching twice daily. Patient was shown the proper way to stretch and given a handout. I started her on a course of meloxicam 15mg daily with food for the next two weeks and then as needed only. All Risks of taking NSAIDS were reviewed with the patient today. Risks included increase in blood pressure, heart attack, stroke, gastrointestinal irritation leading to ulceration and bleeding, renal injury, renal failure, and allergic reaction. I advised she continue icing 20 minutes before bed. If the pain does not improve or worsens, I advised she follow back in the office. I encouraged her to call if she has any questions or concerns. 03/24/2024 Tendinitis with enthesopathy (ICD-10 - M77.9) 03/24/2024 Gastrocnemius equinus of left lower extremity (ICD-10 - M62.462) 03/24/2024 Acute right ankle pain (ICD-10 - M25.571) Patient has very mild arthritic changes in the anterior ankle region. I am uncertain if this is the main cause of the pain and locking like sensation. She also has been having radicular symptoms on the right side and this may be also causing the new onset of anterior ankle pain. I advised she monitor the symptoms for now. If they become more consistent or worsen, we can re-evaluate. She was agreeable with this plan. Plan Of Treatment No Information Insurance Providers Payer Name Payer Address Payer Phone Subscriber Number Group Number Insured Name Patient Relationship to Insured Coverage Start Date Coverage End Date Maria Esther [address] [place] [address] [id number] Yarelis Vargas Self - patient is the insured Medical (General) History Medical History History ICD Code spinal stenosis of lumbar region pre-diabetes lumbar spondylosis left knee pain hypertension diaz's palsy anemia allergic rhinitis Arthritis small vessel disease (brain) + COVID 2020,2020 and 2021 COVID vaccinated X 2 (Moderna) Surgical History Surgery Date(Month/Year) lumpectomy colonoscopy tonsillectomy cholecystectomy tubal ligation biopsy of the left breast Hospitalization History Reason Date(Month/Year) vaginal delivery (girl) 1993 pancreatitis 1990 vaginal delivery (boy) 1990 vaginal delivery (girl) 1986 tonsillectomy
== END ==
LOC: HO.CARD 13:38
PROVIDERS: PCP Internal Medicine; Visit Provider Internal Medicine
DX: R00.2 Palpitations (principal); I10 Essential (primary) hypertension; M79.89 Other specified soft tissue disorders; R73.03 Prediabetes
CPT/HCPCS: 93306

== ENCOUNTER → 2024-12-04 13:41 | Outpatient (BNV) | payer OTHER, SELFPAY | PROVIDERS: PCP Internal Medicine; Visit Provider Internal Medicine Cardiovascular Disease | DX: I51.7 Cardiomegaly (principal) | CPT/HCPCS: 93306 ==

== ENCOUNTER 2025-02-09 10:44 | Outpatient (REF) | payer OTHER, SELFPAY ==
[2025-02-09 14:24] LABS: MANUAL DIFF FLAG NO
[2025-02-09 14:30] LABS: Hematocrit 41.8 % (37.0-47.0); Hemoglobin 13.4 g/dl (12.0-16.0); Imm Gran Abs Auto 0.02 X10*3/uL (0.00-0.03); Imm Gran Pct Auto 0.2 % (0.0-0.4); Lymphocytes Absolute Auto 3.1 X10*3/uL (1.2-4.9); Mean Corpuscular HGB Conc 32.1 g/dl (31.0-35.0); Mean Corpuscular Hemoglobin 26.9 pg (27.0-33.0); Mean Corpuscular Volume 83.8 fL (80.0-98.0); NRBC Abs Auto 0.000 X10*3/uL (0.0-0.012); NRBC Pct Auto 0.0 /100WBC (0.0-0.2); Platelet Count 398 X10*3/uL (160-400); Red Blood Count 4.99 X10*6/uL (4.20-5.50); White Blood Count 8.9 X10*3/uL (4.8-10.8)
[2025-02-09 16:11] LABS: Folate 13.0 ng/mL (> or = 4.0); Vitamin B12 590 pg/mL (200-900)
[2025-02-09 16:21] LABS: Alanine Aminotransferase 17 U/L (0-31); Albumin Level 4.3 g/dL (3.5-5.0); Alkaline Phosphatase 91 U/L (39-117); Anion Gap 12 (12-20); Aspartate Amino Transferase 24 U/L (5-31); Blood Urea Nitrogen 20 mg/dL (9-16); Calcium 9.7 mg/dL (8.4-10.2); Carbon Dioxide 32 mmol/L (22-29); Chloride 101 mmol/L (96-108); Cholesterol 197 mg/dL (<200); Estimated Glomerular Filt Rate > 60; HDL Cholesterol 61 mg/dL (>40); Potassium 3.9 mmol/L (3.3-5.1); Sodium 141 mmol/L (135-145); Total Protein 7.4 g/dL (6.5-8.0); Triglycerides 116 mg/dL (<150)
== END 2025-02-09 10:45 | disposition home or self-care (01) ==
LOC: HO.WFDLDS 10:44
PROVIDERS: Visit Provider Internal Medicine
DX: I10 Essential (primary) hypertension (principal); R00.2 Palpitations; R73.03 Prediabetes; R10.13 Epigastric pain; D64.9 Anemia, unspecified
CPT/HCPCS: 36415; 80053; 80061; 82607; 82746; 83036; 84443; 85025

== ENCOUNTER 2025-02-12 10:06 | Outpatient (AMB) | payer OTHER, SELFPAY ==
--- OUTSIDE RECORDS SUMMARY | 2024-03-12 10:15 | XMS_ITS ---
Author Organization [facility] Address [address] [address] Care Team Providers Care Surgical Nurse Name Role Phone Norma Raphael Primary Care Provider UnavailLULU Michelle Unavailable [phone] REASON FOR VISIT B/L foot pain, Lt achillies pain, RT ankle pain Medications Medication SIG (Take, Route, Frequency, Duration) Notes Start Date End Date Status Diclofenac Sodium 1 % as directed Externally Active Lidocaine-Prilocaine 2.5-2.5 % as directed Externally Activ e predniSONE 20 MG 1 tablet Orally Once a day Active Vital Signs Height 5ft 2in in 03/12/2024 Encounters Encounter Location Date Provider Diagnosis [facility] [address] [address] 03/12/2024 LULU DIAZ Plan Of Treatment No Information Progress Notes * Yarelis HICKMANDOB:1970 ( 54 yo F)Acc No.[id number]:03/12/2024 Consult note Patient: Yarelis HARE Provider: June Flores DPM :1970 A ge:53 Y S ex:Female Date:03/12/2024 Phone: Address:[address] [place] [phone] Pcp:Norma Raphael Subjective: * Chief Complaints: * 1 . B/L foot pain, Lt achillies pain, RT ankle pain. * Medical History: S evere obesity, Spinal stenosis of lumbar region, Pre-diabetes, Lumbar spondylosis, Left knee pain, Hypertension, Osei's palsy, Anemia, Allergic rhinitis. * Surgical History: l umpectomy , colonoscopy . * Social History: t obacco: never alcohol: 2-3 times a week. * Medications: T aking Diclofenac Sodium 1 % Gel as directed Externally , Taking Lidocaine- Prilocaine 2.5-2.5 % Cream as directed Externally , Taking predniSONE 20 MG Tablet 1 tablet Orally Once a day Objective: * Vitals: H t: 5ft 2in, Ht-cm: 157.48. Therapeutic Interventions: Assessment: Plan: * Treatment: * Billing Information: * Visit Code: * Procedure Codes: * Electronic signature of Luciana ROSEPMati on 02/12/2025 at 10:55 AM EDT Sign off status: Pending * Provider: June Flores DPM Date: Generated for Jailyn gayle/Selam/Pearl on: 10:55 AM EDT
[2025-02-12 10:09] VITALS: BP 120/76; PULSE 84; RESP 12; O2SAT 96; BMI 39.3
--- NOTE | 2025-02-12 10:09 | MHC.PC.OV ---
Vital Signs 02/12/25 10:09 Height 5 ft 2 in Weight 215 lb BMI 39.3 BP 120/76 Blood Pressure Location Lt brachial Position Sitting Respiration 12 Pulse 84 Pulse Source Pulse Oximeter Pulse Oximetry (%) 96 Oxygen Delivery Method Room Air Intake Visit Reasons: Zepbound discussion Intake Note: Discuss weight loss medication Transportation Coordinator Required: No Allergies mold Allergy (Unknown, Verified 02/12/25 10:10) unknown Tobacco use date assessed: 02/12/25 Dental Screening Dental Screen Date: 10/27/24 HPI HPI Comments History of Present Illness Details The patient is a 54 year old female with a past medical history of hypertension, anemia, low back pain, arthritis, bells palsy presenting for follow up CV-Hypertension. On chlorthalidone. Blood pressure is well controlled. No chest pain, dizziness, vision changes. Came off norvasc 2/2 leg swelling. Echo was reassuring. Strong family history of cardiac disease. Pending cardiology appt. She was interested in GLP and then recalled that she has had two prior episodes of pancreatitis in the past so does not want to pursue at this time. She would like to try phentermine. Discussed close monitoring of BP on the medication MSK: Arthritis. Bilateral hands. Uses diclofenac gel Anemia: Has been on B12, iron supplements in the past. Believes she is currently on a b complex. History of platelets donation. Has HLA antigens In November 2021 had [place] Palsy. She has had this in the past. Started with facial numbness and asymmetry. She had MRI thereafter which showed small vessel changes and sequelae of bells palsy Mammogram 06/2023, reports 06/2024 Pap 12/19/2021 Colonoscopy UTD ROS see HPI PHYSICAL EXAM: GENERAL: Alert and oriented x 3. NAD EYES: EOMI. Anicteric. HENT: Moist mucous membranes. No scleral icterus. No cervical lymphadenopathy. LUNGS: Clear to auscultation bilaterally. CARDIOVASCULAR: Regular rate and rlhythm.slight systolic murmur. No JVD. ABDOMEN: Soft, non-tender +bs EXTREMITIES: moderate b/l non pitting edema. Non-tender. SKIN: No rashes or lesions. Warm. NEUROLOGIC: No focal neurological deficits. CN II-XII grossly intact PSYCHIATRIC: Cooperative. Appropriate mood and affect [facility] Medical History Severe obesity (BMI 35.0-39.9) with comorbidity Spinal stenosis of lumbar region Pre-diabetes Lumbar spondylosis Left knee pain Hypertension Osei's palsy Anemia Allergic rhinitis Surgical History History of lumpectomy History of colonoscopy Social History Household Members: None Housing: House 75 years or older and lives alone: No Alcohol intake: current Alcohol intake frequency: a few times a month Patient Tobacco Use Status: Never used Tobacco e-Cigarette/Vaping Use: Never Used Substance Use Type: Marijuana service: No Current occupational status: employed Current occupation: [employer] Current occupational exposures/hazards: No Cognitive needs: No Hearing needs: No Vision needs: No Questionnaire Thrive Questionnaire Date Thrive assessed: 10/27/24 I am a: Patient What is your living situation today?: I have a steady place to live Within the past 12 months, did the food you bought not last and you didn't have the money to get more?: Never true Within the past 12 months, did you worry whether your food would run out before you got money to buy more?: Never true Do you have trouble paying for medicines?: No Do you have trouble getting transportation to medical appointments?: No Do you have trouble paying your heating and electricity bill?: No Do you have trouble taking care of your child, family member or friend?: No Do you have trouble with day-to-day activities such as bathing, preparing meals, shopping, managing finances, etc.?: No Are you currently unemployed and looking for a job?: No Are you interested in more education?: No Please select the resources that you would like help with: None Currently or been in a relationship where the following occur: No concerns reported THRIVE Score: 0 AUDIT C Alcohol Use Questionnaire (AUDIT-C) 1. How often do you have a drink containing alcohol?: 2-4 times a month 2. How many drinks containing alcohol do you have on a typical day when you are drinking?: 1 or 2 3. How often do you have six or more drinks on one occasion?: Never Total Score: 2 LIZ-7 AMB Questionnaire LIZ-7 Date LIZ - 7 assessed: 10/27/24 Source: Developed by Drs. Thai Davidson, Sarah Trujillo, Vikram Edmond and colleagues, with an educational mariano from [employer]. Physical exam (Primary Care) Vital Signs: Last Vital Signs Pulse 84 02/12/25 10:09 Resp 12 02/12/25 10:09 BP 120/76 02/12/25 10:09 Pulse Ox 96 02/12/25 10:09 Oxygen Delivery Method Room Air 02/12/25 10:09 BMI result Body Mass Index 39.3 Tobacco/Smoking Status: Tobacco use Status Tobacco use date assessed 02/12/25 02/12/25 10:14 Patient Tobacco Use Status Never used Tobacco 02/12/25 10:14 e-Cigarette/Vaping Use Never Used 02/12/25 10:14 Thrive Assessment: Date of Thrive Assessment Date Thrive assessed 10/27/24 02/12/25 10:14 Currently or been in a relationship where the following occur: No concerns reported Coding Level of Care Code Est Pt Level 4 (22231) Diagnoses Obesity (BMI 30-39.9) E66.9 Primary hypertension I10 Hypertension type: primary hypertension Pre-diabetes R73.03 Assessment & Plan Assessment & Plan (1) Obesity (BMI 30-39.9): Code(s): E66.9 - Obesity, unspecified Category: Medical (2) Hypertension: Code(s): I10 - Essential (primary) hypertension Category: Medical Qualifiers: Hypertension type: primary hypertension Qualified Code(s): I10 - Essential (primary) hypertension (3) Pre-diabetes: Code(s): R73.03 - Prediabetes Category: Medical Plan 54 year old for follow up HTN-controlled on current medications Prediabetes/Obesity-has failed diet, lifestyle changes. Trial phentermine. Monitor BP Anemia has been stable. Reviewed labs Medications: New phentermine must administer 30 minutes before or 1-2 hours after breakfast GoodRx [id number] [facility] Group[employer] Member [id number] 37.5 mg PO DAILY 30 caps 3RF
--- OUTSIDE RECORDS SUMMARY | 2025-02-12 10:56 | XMS_ITS | Clinical Summary ---
Author Organization [facility] Address [address] [place] [address] Care Team Providers Care Fiber Optics Supervisor Name Role Phone Norma Raphael MD Primary Care Provider [phone] Allergies No known active allergies Medications Medication [...] age to complete this topic Care Teams Fiber Optics Supervisor Relationship Specialty Start Date End Date Noram Raphael MD PCP - General Internal Medicine 04/27/19
--- OUTSIDE RECORDS SUMMARY | 2025-02-12 10:56 | XMS_ITS | Patient Health Record ---
Author Organization [facility] Address [address] [address] Care Team Providers Care Mechanical Systems Designer Name Role Phone SpencerFrancesca Norma Primary Care Provider UnavailLULU Michelle Unavailable [phone] Allergies Allergen (clinical drug ingredient) Drug/Non Drug [...] 1 tablet with food Orally Once a day; Duration: 30 days 03/24/2024 Active Iron 325 (65 Fe) MG 1 tablet Orally Active Vitamin D 25 MCG (1000 UT) 1 tablet Oral ly Once a day Active B Complex - as directed Orally Active Problems Problem Type SNOMED Code ICD Code Onset Dates Problem Status W/U Status Risk Notes Problem Tightness of left gastrocnemius muscle (finding) (2945518548395982 [id number]) 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..] Coverage End Date Maria Esther PERKINS [address] [employer] [phone] [id number] Yarelis Vargas Self - patient is the [...]
== END 2025-02-12 15:24 | disposition home or self-care (01) ==
LOC: HO.HMCFM 10:06
PROVIDERS: PCP Internal Medicine; Visit Provider Internal Medicine
DX: I10 Essential (primary) hypertension (principal); E66.9 Obesity, unspecified; R73.03 Prediabetes; Z68.39 Body mass index [BMI] 39.0-39.9, adult

== ENCOUNTER 2025-03-08 12:31 | Outpatient (AMB) | payer OTHER, SELFPAY ==
--- OUTSIDE RECORDS SUMMARY | 2024-03-12 10:15 | XMS_ITS ---
Author Organization [facility] Address [address] [address] Care Team Providers Care [employer] Teacher Name Role Phone Norma Raphael Primary Care Provider UnavailLULU Michelle Unavailable [phone] REASON FOR VISIT B/L foot pain, Lt [...] 03/12/2024 Encounters Encounter Location Date Provider Diagnosis [facility] [address] [address] 03/12/2024 LULU DIAZ Plan Of Treatment No Information Progress Notes * Yarelis HICKMANDOB:1970 ( 54 yo F)Acc No.[id number]:03/12/2024 Consult note Patient: Yarleis HARE Provider: June Flores DPM :1970 A ge:53 Y S ex:Female Date:03/12/2024 Phone: Address:[address] [place] [phone] Pcp:Norma Raphael Subjective: * Chief Complaints: * [...] * Procedure Codes: * Electronic signature of Luicana ROSEPMati on 03/08/2025 at 03:52 PM EDT Sign off status: Pending * Provider: June Flores DPM Date: Generated for Jailyn gayle/Selam/Pearl on: 03:52 PM EDT
[2025-03-08 12:56] VITALS: BP 120/74; PULSE 77; BMI 39.0
--- NOTE | 2025-03-08 12:56 | MHC.OFFVIS ---
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/O'Ma/hypertension Intake Note: GAS APPLIANCE ADJUSTER/ Hypertension Marble Ceiling Installer Required: No Accompanied by: Self / Same As Patient Allergies mold Allergy (Unknown, Verified 02/12/25 10:10) unknown Medication List - Last Reconciled 03/08/25 by Praveen Erickson MD aspirin (Adult Low Dose Aspirin) 81 mg PO DAILY chlorthalidone 25 mg PO DAILY cholecalciferol (vitamin D3) 50 mcg PO DAILY diclofenac sodium 1% 2 grams topical QID ferrous fumarate 325 mg PO DAILY fluticasone propionate 50 mcg/actuation (Flonase Allergy Relief) 1 spray intranasal DAILY magnesium oxide 400 mg PO DAILY mecobalamin (vitamin B12) 1,000 mcg PO DAILY phentermine 37.5 mg PO DAILY vitamin B complex 1 tab PO DAILY HPI Comments Details: Pleasant 54-year-old lady who is here for 1st office visit. She has background history of hypertension and has been on chlorthalidone with good blood pressure control. She has been on phentermine for weight loss for 3 weeks. She has prediabetes and obesity. She apparently had some lower extremity edema and Elisha after coming back from vacation. At that time echocardiography was done which showed normal LVEF 60 65% without any regional wall motion abnormalities. Diastolic function was normal for age. Normal right ventricular size and systolic function. No aortic stenosis and trivial aortic regurgitation was noted. Bicuspid aortic valve could not be ruled out. She had mild dilation of ascending aorta 3.8 cm. Her mother had aortic valve stenosis in her 70s underwent transcatheter aortic valve replacement. Patient personally does not have any significant cardiovascular history. She has not been very active but during summer she was playing golf and trying to be more active. With activities she has no chest discomfort shortness of breath. Overall clinically stable. [facility] Medical History Severe obesity (BMI 35.0-39.9) with comorbidity Spinal stenosis of lumbar region Pre-diabetes Lumbar spondylosis Left knee pain Hypertension Osei's palsy Anemia Allergic rhinitis Surgical History History of lumpectomy History of colonoscopy Social History Household Members: None Housing: House 75 years or older and lives alone: No Alcohol intake: current Alcohol intake frequency: a few times a month Patient Tobacco Use Status: Never used Tobacco e-Cigarette/Vaping Use: Never Used Substance Use Type: Marijuana service: No Current occupational status: employed Current occupation: [employer] Current occupational exposures/hazards: No Cognitive needs: No Hearing needs: No Vision needs: No Review of Systems Const Denies chills, Denies fatigue, Denies fever(s), Denies frequent falls, Denies weakness, Denies weight gain and Denies weight loss ENT Denies dizziness Card Denies chest pain, Denies leg edema, Denies lightheadedness, Denies palpitations, Denies dyspnea, Denies dyspnea on exertion and Denies orthopnea Resp Denies cough, Denies dyspnea and Denies dyspnea on exertion GI Denies bloating and Denies change in bowel habits Musc Denies muscle weakness, Denies numbness and Denies tingling Neuro Denies dizziness, Denies frequent falls, Denies numbness, Denies tingling and Denies weakness Endo Denies fatigue and Denies palpitations Physical Exam Vital Signs: Last Vital Signs Pulse 77 03/08/25 12:56 BP 120/74 03/08/25 12:56 BMI result Body Mass Index 39.0 GENERAL APPEARANCE: in no acute distress, pleasant. NECK: no carotid bruit, no jugular venous distention. SKIN: no suspicious lesions, warm and dry. HEART: no murmurs, regular rate and rhythm. LUNGS: clear to auscultation bilaterally. ABDOMEN: soft, nontender. EXTREMITIES: no edema. PERIPHERAL PULSES: equal. NEUROLOGIC: No gross deficits, AAO X 3 Assessment & Plan Assessment & Plan (1) Hypertension: Code(s): I10 - Essential (primary) hypertension Category: Medical Qualifiers: Hypertension type: primary hypertension Qualified Code(s): I10 - Essential (primary) hypertension (2) Aortic dilatation: Comment: possible bicuspid valve Code(s): I77.819 - Aortic ectasia, unspecified site Category: Medical Plan Pleasant 54 year lady with hypertension and mild dilation of ascending aorta 3.8 cm. Bicuspid aortic valve could not be ruled out based on echocardiography. Aortopathy is linked with bicuspid aortic valve and I think it is possible that she has bicuspid valve although echo imaging was not clear. In any case she does not have any stenosis or significant regurgitation currently. Her blood pressure is well controlled. She is not a smoker. I have currently reassured her. We will repeat echocardiography in 2 years. Blood pressure is well controlled. She will see us in 6-9 months. She will report to us if she developed any new symptoms. Thank you for allowing me to participate in the care of your patient. Please feel free to contact me if you have any questions. Coding Level of Care Code New Pt Level 4 (33727) Diagnoses Primary hypertension I10 Hypertension type: primary hypertension Aortic dilatation I77.819
--- OUTSIDE RECORDS SUMMARY | 2025-03-08 15:52 | XMS_ITS | Patient Health Record ---
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
--- OUTSIDE RECORDS SUMMARY | 2025-03-08 15:53 | XMS_ITS | Clinical Summary ---
Author Organization [facility] Address [address] [place] [address] Care Team Providers Care Merchant Police Name Role Phone Norma Raphael MD Primary Care Provider [phone] Allergies No known active allergies Medications Medication [...] age to complete this topic Care Teams Merchant Police Relationship Specialty Start Date End Date Norma Raphael MD PCP - General Internal Medicine 04/27/19
== END 2025-03-08 13:28 | disposition home or self-care (01) ==
LOC: HO.HCS 12:32
PROVIDERS: PCP Internal Medicine; Visit Provider Internal Medicine Cardiovascular Disease
DX: I10 Essential (primary) hypertension (principal); I77.810 Thoracic aortic ectasia
CPT/HCPCS: 99214